=== PATIENT | male | born 1975 | race Two or more races ===

== ENCOUNTER 2020-09-23 17:19 | Outpatient (REF) | payer OTHER, SELFPAY | END 2020-09-23 17:20 | disposition home or self-care (01) | LOC: HO.LAB 17:19 | PROVIDERS: PCP Nurse Practitioner Family; Visit Provider Internal Medicine | DX: Z20.828 Contact with and (suspected) exposure to other viral communicable diseases (principal) | CPT/HCPCS: 87635 ==

== ENCOUNTER 2020-09-27 12:58 | Outpatient (REF) | payer OTHER, SELFPAY | END 2020-09-27 12:59 | disposition home or self-care (01) | LOC: HO.LAB 12:58 | PROVIDERS: Visit Provider Internal Medicine | DX: Z20.828 Contact with and (suspected) exposure to other viral communicable diseases (principal) | CPT/HCPCS: 87635 ==